=== PATIENT | female | born 1990 | race Caucasian/White ===

== ENCOUNTER 2022-03-23 15:00 | Outpatient (CLI) | payer BC ==
[2022-03-23 16:52] VITALS: BP 124/79; PULSE 89; RESP 17; TEMP 96.4
--- NOTE | 2022-04-27 10:15 | P.MSEPDOC ---
Presenting Problems - Arrival Data Date of Arrival on Unit: 03/23/22 Time of Arrival on Unit: 15:00 Mode of Transport: Ambulatory - Complaint OB-Reason for Admission/Chief Complaint: Possible Onset of Labor Comment: pt presents to triage for cramping that is getting worse today, rating pain at 7/10 Medical History - Information : 1 Para: 0 Term: 0 : 0 Abortions: Spontaneous or Elective: 0 Number of Living Children: 0 - Gestational Age Gestational Age by KULWANT (wks/days): 36 Weeks and 1 Days Review of Systems - Review of Systems Constitutional: No problems Breast: No problems ENT: No problems Cardiovascular: No problems Respiratory: No problems Gastrointestinal: No problems Genitourinary: No problems Musculoskeletal: No problems Neurological: No problems Skin: No problems Vital Signs - Temperature Temperature: 96.4 F Temperature Source: Temporal Artery Scan - Pulse Right Brachial Pulse Rate: 89 Pulse Assessment Method: Automatic Cuff - Respirations Respiratory Rate: 17 Oxygen Delivery Method: Room Air O2 Sat by Pulse Oximetry: 98 - Blood Pressure Right Arm Blood Pressure: 124/79 Blood Pressure Mean: 94 Blood Pressure Source: Automatic Cuff Medical Screen Scoring - Cervical Exam Dilation (cm): 1 Effacement (%): 60 Station: -2 Membranes: Intact - Uterine Contractions Intensity: Mild Resting: Soft to palpation - Assessment - Baby A Baseline FHR: 120 Heart Rate - NICHD Category: Category I (Normal) NST: Reactive Physician Notification - Physician Notified Physician Notified Date: 03/23/22 Physician Notified Time: 16:10 Physician: Mya Case Order Received: Yes - Notification Comment Comment: Reactive nst, contractions spaced out and not as painful for pt, no cervical change, pt discharged home with scheduled appt on , Maternal Triage Index - Maternal Triage Index Presenting for scheduled procedure w/no complaint: No - Stat/Priority 1 Stat Priority 1: No - Urgent/Priority 2 Urgent Priority 2: No - Prompt/Priority 3 Prompt Priority 3: Yes Criteria Met for Priority 3: pt presents to triage for cramping that is getting worse today, rating pain at 7/10 Disposition - Disposition OB Disposition: Triage, Discharge to home, Written follow up instructions reviewed Discharge Date: 03/23/22 Discharge Time: 16:45 I agree with the RN Medical Screening Exam: Yes Physician's MSE Comment: I have neither seen nor examined the patient Case reviewed; plan agreed upon as documented in EMR&OBIX.: Yes Diagnosis: RELATED CONDITIONS, UNSPECIFIED, THIRD TRIMESTER
== END 2022-03-23 16:45 | disposition home or self-care (01) ==
LOC: FBPOP 15:00
PROVIDERS: ATTEND Obstetrics & Gynecology
DX: O26.893 Other specified pregnancy related conditions, third trimester (principal); Z3A.36 36 weeks gestation of pregnancy; Z88.1 Allergy status to other antibiotic agents; R10.9 Unspecified abdominal pain
CPT/HCPCS: 59025; 99213

== ENCOUNTER 2022-04-15 06:36 | Inpatient (IN) | payer BC ==
[2022-04-15] MEDS ORDERED: CARBOPROST TROMETHAMINE 250 MCG/ML 1 ML AMP IM PRN (06:54)
[2022-04-15] MEDS ORDERED: miSOPROStoL 200 MCG TAB PO PRN (06:54)
[2022-04-15] MEDS ORDERED: TERBUTALINE 1 MG/ML VIAL SQ PRN (06:54)
[2022-04-15] MEDS ORDERED: OXYTOCIN 10 UNIT/ML 1 ML VIAL IM PRN (06:54)
[2022-04-15] MEDS ORDERED: LIDOCAINE 0.5% (PF) 5 MG/ML (50 ML SDV) SQ PRN (06:54)
[2022-04-15] MEDS ORDERED: METHYLERGONOVINE 0.2 MG/ML 1 ML AMP IM PRN (06:54)
[2022-04-15] MEDS ORDERED: OXYTOCIN 30 UNITS/500 ML NS 30 UNIT in SALINE 1 500ML.BAG IV SCH (07:00)
[2022-04-15] MEDS: LACTATED RINGERS 1,000 ML IV SCH ×4 (07:10→18:50)
[2022-04-15 07:31] LABS: Basophils % (A) 0 %; Eosinophils # (A) 0.1 k/uL (0-0.7); Eosinophils % (A) 1 %; HCT 36.5 % (34.0-46.0); HGB 12.1 gm/dL (11.4-16.0); Hypochromasia Slight; Lymphocytes # (A) 2.2 k/uL (1.0-4.8); Lymphocytes % (A) 22 %; MCH 25.8 pg (25.0-35.0); MCHC 33.2 g/dL (31.0-37.0); MCV 77.8 fL (80.0-100.0); Mean Platelet Volume 9.6; Monocytes # (A) 0.6 k/uL (0-1.0); Monocytes % (A) 6 %; Neutrophils # (A) 6.8 k/uL (1.3-7.7); Neutrophils % (A) 69 %; Platelet Count 233 k/uL (150-450); RBC 4.69 m/uL (3.80-5.40); RDW 13.7 % (11.5-15.5); WBC 9.8 k/uL (3.8-10.6)
[2022-04-15] MEDS ORDERED: fentaNYL (PF) 50 MCG/ML 5 ML AMP ONE (08:16)
[2022-04-15] MEDS ORDERED: SODIUM CHLORIDE 0.9% 100 ML BAG ONE (08:16)
[2022-04-15] MEDS ORDERED: ROPIVACAINE 5 MG/ML 20 ML AMPULE ONE (08:16)
[2022-04-15] MEDS ORDERED: CITRIC ACID-SODIUM CITRATE 15 ML CUP PO ONE (16:00)
[2022-04-15] MEDS ORDERED: SIMETHICONE 80 MG CHEWABLE PO PRN (17:08)
[2022-04-15] MEDS ORDERED: diphenhydrAMINE 50 MG/ML 1 ML VIAL IVP PRN ×2 (17:08)
[2022-04-15] MEDS ORDERED: diphenhydrAMINE 50 MG CAP PO PRN (17:08)
[2022-04-15] MEDS ORDERED: ONDANSETRON 4 MG/2 ML VIAL IVP PRN (17:08)
[2022-04-15] MEDS ORDERED: METOCLOPRAMIDE 5 MG/ML 2 ML VIAL IVP PRN (17:08)
[2022-04-15] MEDS ORDERED: diphenhydrAMINE 25 MG CAP PO PRN (17:08)
[2022-04-15] MEDS ORDERED: HYDROmorphone 1 MG/ML 1 ML SYRINGE IVP PRN (17:08)
[2022-04-15] MEDS ORDERED: NALOXONE 0.4 MG/ML 1 ML VIAL IV PRN (17:08)
[2022-04-15] MEDS ORDERED: ZOLPIDEM 5 MG TAB PO PRN (17:08)
--- NOTE | 2022-04-15 17:25 | P.OP ---
Date of Procedure: 04/15/22 Preoperative Diagnosis: IUP at 39-3/7 weeks, arrest of descent, meconium stained fluid Postoperative Diagnosis: Same Procedure(s) Performed: Primary low transverse section Anesthesia: epidural Surgeon: Shwetha Naranjo Money Market Clerk #1: Lili King Estimated Blood Loss (ml): 1,029 IV fluids (ml): 1,000 Urine output (ml): 300 (clear yellow) Pathology: other (placenta) Condition: stable Disposition: observation Indications for Procedure: 31 yo at 39 3/7 weeks that presented this am with complaints of regular painful contractions beginning around 3 am. she was noted to be 6cm upon arriv al, she did request epidural quickly after admission. After epidural placement amniotomy was preformed and meconium stained fluid was noted. Patient made slow progress, and Pitocin augmentation was begun. Patient progressed to complete. Initially patient did not have an urge to push therefore when urged to push was noted she began pushing. After approximately 2 hours no descent beyond a 0 sta tion was appreciated. Significant Formation was noted. Variable decelerations with contractions were appreciated down to the 90s. Given these findings discussion with patient and patient's regarding the need for primary C- section. Patient and agreed with plan and patient was taken back to the operating suite. Epidural was redosed by anesthesia. Operative Findings: Viable male delivered in occiput transverse presentation at 1637, weight of 8 lbs. 12 oz., Apgars of 9 and 9 at one and 5 minutes respectively. Spontaneous cry was noted at . Normal uterus tubes and ovaries were appreciated. Description of Procedure: The patient was prepped and draped in the usual fashion after epidural anesthesia was found be adequate. A Pfannenstiel incision was made and extended of the abdominal cavity without difficulty. The bladder peritoneum was elevated and incised and reflected distally. A 2 cm incision was made in the transverse plane of the lower uterine segment to enter the uterus at which time clear fluid was noted. The incision was extended bluntly. The head was encountered within the field and delivered up and through the incision where the nose and mouth were thoroughly suctioned. Remainder of the was delivered onto the surgical field where the cord was doubly clamped, cut, and the infant was passed for resuscitative measures with weight and Apgars as noted above. The placenta was delivered manually, intact with noted meconium staining, and was grossly normal with a grossly normal three-vessel cord. The uterus was exteriorized and the interior cavity of the uterus swept of any remaining placental and membranous fragments with a laparotomy sponge. The margins of the incision were grasped with Allis clamps and the incision closed in 2 layers. First layer was a running locking layer of 0 vicryl from margin to margin followed by a second layer of imbricating 0 vicryl from margin to margin. Any small points of bleeding were then made hemostatic with the Bovie. Once hemostasis was achieved, the posterior cul-de-sac was suctioned with a guard and the uterine and ovarian findings are as noted above. The uterus was replaced within the abdominal cavity and the gutters swept of any remaining blood fluid or clot. The incision was again reexamined and hemostasis was noted to be excellent. Any small point of bleeding were made hemostatic with the Bovie. Once hemostasis was achieved the parietal peritoneum was loosely reapproximated. The layer of muscles were examined and made hemostatic with the Bovie. Attention was then turned to the fascia which was closed with 2 running stitches of 0 Vicryl proceeding from the lateral margins to the midpoint. The subcutaneous tissues were irrigated, made hemostatic with the Bovie, and reapproximated with a running stitch of 30 vicryl. The skin was closed with 4-0 Vicryl in a subcuticular fashion. Estimated blood loss for the case was approximately 1029 mL. All sponge instrument and needle counts are correct. There were no complications. The patient tolerated the procedure well and proceeded to the recovery room in stable condition. Both mother and infant are resting comfortably in recovery.
--- NOTE | 2022-04-15 17:26 | P.HPOB ---
History of Present Illness H&P Date: 04/15/22 Chief Complaint: IUP @ 39 3/7 weeks, active labor This is a 31-year-old female at 39 weeks of gestation that presents to labor and delivery with complaints of regular painful contractions. Patient states contractions started around 3:30 this morning. Patient denies loss of fluid. Patient does movement. Patient has been receiving routine care which has been essentially uncomplicated. On bloodwork this patient is a blood type of B+, rubella status immune, hep Coco surface antigen negative, HIV negative, RPR nonreactive, group beta strep culture negative. Review of Systems Constitutional: Denies chills, Denies fatigue, Denies fever Ears, nose, mouth and throat: Denies headache Cardiovascular: Reports leg edema Respiratory: Denies dyspnea Gastrointestinal: Denies constipation, Denies diarrhea, Denies nausea, Denies vomiting Genitourinary: Reports Past Medical History Past Medical History: No Reported History History of Any Multi-Drug Resistant Organisms: None Reported Past Surgical History: No Surgical Hx Reported Past Anesthesia/Blood Transfusion Reactions: No Reported Reaction Past Psychological History: No Psychological Hx Reported Smoking Status: Former smoker Additional Drug Use History / Comment(s): quit with - Past Family History Mother Family Medical History: No Reported History Medications and Allergies Home Medications Medication Instructions Recorded Confirmed Type Vit No.179/Iron/Folic 1 each PO DAILY 03/23/22 04/15/22 History [ Tablet] Allergies Allergy/AdvReac Type Severity Reaction Status Date / Time levofloxacin [From Levaquin] Allergy Intermediate Rash/Hives Verified 04/15/22 06:44 Exam Osteopathic Statement: *. No significant issues noted on an osteopathic structural exam other than those noted in the History and Physical/Consult. 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 Results Result Diagrams: 04/15/22 07:11 Abnormal Lab Results - Last 24 Hours (Table) 04/15/22 Range/Units 07:11 MCV 77.8 L (80.0-100.0) fL Assessment and Plan (1) Term Current Visit: Yes Status: Acute Code(s): Z34.90 - ENCNTR FOR SUPRVSN OF NORMAL , UNSP, UNSP TRIMESTER SNOMED Code(s): 33332357 (2) Active labor Current Visit: Yes Status: Acute Code(s): OAG8219 - SNOMED Code(s): 924900146 Plan: 31-year-old 1 para 0 at 39 3/7 weeks of gestation that presents in active labor. Patient is admitted to labor and delivery and she is requesting epidural placement. Currently awaiting anesthesia for epidural placement. Will perform amniotomy after epidural is placed. Anticipate spontaneous vaginal delivery.
[2022-04-15] MEDS: ACETAMINOPHEN IV (For NPO) 1,000 MG in EMPTY BAG 1 BAG IVPB SCH (18:13)
[2022-04-15] MEDS: ACETAMINOPHEN TAB 500 MG TAB PO SCH (19:57)
[2022-04-15] MEDS: SENNOSIDES-DOCUSATE SODIUM 1 EACH TAB PO SCH (20:13)
[2022-04-15] MEDS: IBUPROFEN 600 MG TAB PO SCH (22:59)
[2022-04-15] MEDS: IBUPROFEN IV 800 MG in SODIUM CHLORIDE 0.9% 250 ML IV SCH (23:16)
[2022-04-16] MEDS: ACETAMINOPHEN IV (For NPO) 1,000 MG in EMPTY BAG 1 BAG IVPB SCH (01:57)
[2022-04-16] MEDS: LACTATED RINGERS 1,000 ML IV SCH ×4 (01:58→09:50)
[2022-04-16] MEDS: IBUPROFEN 600 MG TAB PO SCH ×4 (05:13→23:36)
--- NOTE | 2022-04-16 07:02 | P.PN ---
Progress Note - Text Progress Note Date: 04/16/22 Postoperative day 1 status post section under epidural anesthesia, and epidural morphine given for postoperative analgesia, patient doing well, there is no anesthesia related complications, Patient had no headache, vital signs stable , Assessment and plan= postop day 1 status post , doing well there is no anesthesia related complication.
[2022-04-16 07:06] LABS: Basophils % (A) 0 %; Eosinophils % (A) 0 %; HCT 25.5 % (34.0-46.0); HGB 8.3 gm/dL (11.4-16.0); Lymphocytes # (A) 1.1 k/uL (1.0-4.8); Lymphocytes % (A) 11 %; MCH 25.4 pg (25.0-35.0); MCHC 32.7 g/dL (31.0-37.0); MCV 77.6 fL (80.0-100.0); Mean Platelet Volume 9.3; Monocytes # (A) 0.4 k/uL (0-1.0); Monocytes % (A) 4 %; Neutrophils # (A) 8.6 k/uL (1.3-7.7); Neutrophils % (A) 84 %; Platelet Count 181 k/uL (150-450); Poikilocytosis Slight; RBC 3.29 m/uL (3.80-5.40); RDW 14.3 % (11.5-15.5); WBC 10.2 k/uL (3.8-10.6)
[2022-04-16] MEDS: ACETAMINOPHEN TAB 500 MG TAB PO SCH ×4 (08:14→19:53)
[2022-04-16] MEDS: IBUPROFEN IV 800 MG in SODIUM CHLORIDE 0.9% 250 ML IV SCH (08:15)
[2022-04-16] MEDS: SENNOSIDES-DOCUSATE SODIUM 1 EACH TAB PO SCH ×2 (08:43→20:07)
[2022-04-16] MEDS: PRENATAL VIT-IRON-FOLIC ACID 1 EACH TABLET PO SCH (09:49)
[2022-04-17] MEDS: ACETAMINOPHEN TAB 500 MG TAB PO SCH ×2 (02:09→08:40)
[2022-04-17] MEDS: IBUPROFEN 600 MG TAB PO SCH (05:41)
[2022-04-17 08:13] VITALS: BP 129/79; PULSE 84; RESP 16; TEMP 98.2
[2022-04-17] MEDS: SENNOSIDES-DOCUSATE SODIUM 1 EACH TAB PO SCH (08:40)
[2022-04-17] MEDS: PRENATAL VIT-IRON-FOLIC ACID 1 EACH TABLET PO SCH (09:04)
--- NOTE | 2022-04-17 10:17 | P.DS ---
Providers Date of admission: 04/15/22 06:57 Expected date of discharge: 04/17/22 Attending physician: Shwetha Naranjo Primary care physician: Stated None - Discharge Diagnosis(es) (1) Term Current Visit: Yes Status: Acute (2) Active labor Current Visit: Yes Status: Acute (3) Non-reassuring electronic monitoring tracing Current Visit: Yes Status: Acute (4) Arrest of descent, delivered, current hospitalization Current Visit: Yes Status: Acute (5) S/P section Current Visit: Yes Status: Acute (6) Thin meconium stained amniotic fluid Current Visit: Yes Status: Acute Hospital Course: This is a 31-year-old 1 para 0 that presented at 39-3/7 weeks in active labor. Patient was receiving routine care for full details and the patient please see dictated history and physical. Patient was admitted and noted to be 6 cm, she quickly requested epidural after admission. Epidural was placed amniotomy was performed and thin meconium-stained fluid was appreciated. Patient made slow progress through labor and eventually Pitocin augmentation of labor was begun. Patient did progress to complete and began pushing. Patient was noted after proximally 2 hours of pushing to have no descent beyond 0 station. In addition variable decelerations with contractions were noted down to the 90s. Discussion with patient and regarding status and arrest of descent were reviewed, all questions were answered. Decision was made to proceed with primary . For full details on the please see the operative report. Patient delivered a viable male infant in occiput transverse presentation at 1637, weight of 8 lbs. 12 oz. Apgars of 9 and 9 at one and 5 minutes respectively. Patient's course has been uneventful. On this postoperative day #2 she is ambulating and voiding without difficulty. She states her pain is well-controlled. She states her lochia is minimal. She is breast-feeding. She would like discharge home today if possi ble. Patient Condition at Discharge: Good Plan - Discharge Summary New Discharge Prescriptions: No Action Vit No.179/Iron/Folic [ Tablet] 1 each PO DAILY Discharge Medication List Vit No.179/Iron/Folic [ Tablet] 1 each PO DAILY 03/23/22 [History] Follow up Appointment(s)/Referral(s): Shwetha Naranjo DO [Doctor of Osteopathic Medicine] - 2 Weeks Patient Instructions/Handouts: (DC), (GEN) Activity/Diet/Wound Care/Special Instructions: Patient can expect vaginal bleeding moderate to ehavy at times. she may pass a few clots and then the bleeding tends to taper down. OTC Ibuprofen and tylenol for pain. she is to call and make a routine postoperative appt in 2 weeks. Should she have any concerns prior to this please call the office and be seen sooner. Discharge Disposition: HOME SELF-CARE
== END 2022-04-17 13:50 | disposition home or self-care (01) | DRG 788 ==
LOC: FBPOP 06:36 → 4FBP 06:57
PROVIDERS: ADMIT Obstetrics & Gynecology Obstetrics; ATTEND Obstetrics & Gynecology Obstetrics
PROC: 4A0HXCZ Measurement of Products of Conception, Cardiac Rate, External Approach (ICD-10-PCS; 2022-04-15)
PROC: 10907ZC Drainage of Amniotic Fluid, Therapeutic from Products of Conception, Via Natural or Artificial Opening (ICD-10-PCS; 2022-04-15)
PROC: 3E033VJ Introduction of Other Hormone into Peripheral Vein, Percutaneous Approach (ICD-10-PCS; 2022-04-15)
PROC: 4A0HXCZ Measurement of Products of Conception, Cardiac Rate, External Approach (ICD-10-PCS; 2022-04-15)
PROC: 10D00Z1 Extraction of Products of Conception, Low, Open Approach (ICD-10-PCS; principal; 2022-04-15 16:56)
DX: O32.4XX0 Maternal care for high head at term, not applicable or unspecified (principal); O76 Abnormality in fetal heart rate and rhythm complicating labor and delivery; O32.2XX0 Maternal care for transverse and oblique lie, not applicable or unspecified; O77.0 Labor and delivery complicated by meconium in amniotic fluid; Z37.0 Single live birth; Z3A.39 39 weeks gestation of pregnancy; Z87.891 Personal history of nicotine dependence; Z88.1 Allergy status to other antibiotic agents
CPT/HCPCS: 84112; 85025; 86850; 86900; 86901; 99213